=== PATIENT | male | born 1945 | race Caucasian/White ===

== ENCOUNTER → 2024-04-21 06:43 | Outpatient (REF) | payer OTHER, SELFPAY ==
[2024-04-21 07:24] LABS: % Basophils 1.2 % (0-2); % Immature Granulocytes 0.4 % (0-0.5); % Lymphocytes 28.1 % (20.5-51.1); % Monocytes 9.9 % (1.7-9.3); % Neutrophils 56.4 % (42.2-75.2); Absolute Basophils 0.1 10^3/uL (0-0.2); Absolute Eosinophils 0.2 10^3/uL (0-0.7); Absolute Lymphocytes 1.4 10^3/uL (1.2-3.4); Absolute Monocytes 0.5 10^3/uL (0.1-0.6); Absolute Neutrophils 2.8 10^3/uL (1.4-6.5); Hemoglobin 13.4 g/dL (13.0-18.0); Mean Corp Hgb Conc. 34.4 g/dL (33.0-37.0); Mean Corpuscular Hgb 29.9 pg (27.0-31.0); Mean Corpuscular Volume 87.1 fL (80.0-94.0); Mean Platelet Volume 9.4 fL (7.4-10.4); Nucleated Red Blood Cells % 0 % (-); Platelet Count 181 10^3/uL (130-400); Red Blood Cell Count 4.48 10^6/uL (4.70-6.10); Red Cell Dist. Width 12.9 % (11.5-14.5); White Blood Cell Count 4.9 10^3/uL (4.8-10.8)
[2024-04-21 07:56] LABS: ALT (SGPT) 19 U/L (0-50); AST (SGOT) 30 U/L (17-59); Alkaline Phosphatase 103 U/L (38-126); Blood Urea Nitrogen 28 mg/dl (9-20); Calcium 9.3 mg/dl (8.4-10.2); Carbon Dioxide 25 mmol/L (22-30); Chloride 108 mmol/L (98-107); Glucose 92 mg/dl (70-99); HDL Cholesterol 56 mg/dl; LDL Cholesterol, Calculated 136 mg/dl; Potassium 4.7 mmol/L (3.5-5.1); Sodium 140 mmol/L (135-145); Total Bilirubin 0.6 mg/dl (0.2-1.3); Total Cholesterol 212 mg/dl (50-199); Total Protein 7.1 g/dl (6.3-8.2); Triglyceride 102 mg/dl (10-149); Very Low Density Lipoprotein 20 mg/dl (0-30); eGFR 50.81
[2024-04-21 08:27] LABS: TSH 6.19 uIU/ml (0.47-4.68)
[2024-04-22 14:01] LABS: PSA Total 0.9 ng/mL (0.0-4.0)
== END ==
LOC: REG 06:43
PROVIDERS: ATTENDING PHYSICIAN Internal Medicine
DX: Z00.00 Encounter for general adult medical examination without abnormal findings (principal); N40.0 Benign prostatic hyperplasia without lower urinary tract symptoms; E03.9 Hypothyroidism, unspecified; Z78.9 Other specified health status; E78.5 Hyperlipidemia, unspecified
CPT/HCPCS: 36415; 80053; 80061; 84153; 84154; 84443; 85025

== ENCOUNTER → 2025-05-21 06:38 | Outpatient (REF) | payer MEDICARE, SELFPAY ==
[2025-05-21 07:48] LABS: Hematocrit 39.9 % (39.0-52.0); Hemoglobin 13.7 g/dL (13.0-18.0); Mean Corp Hgb Conc. 34.3 g/dL (33.0-37.0); Mean Corpuscular Volume 88.5 fL (80.0-94.0); Nucleated Red Blood Cells % 0 % (-); Platelet Count 181 10^3/uL (130-400); Red Cell Dist. Width 12.8 % (11.5-14.5)
[2025-05-21 08:02] LABS: ALT (SGPT) 16 U/L (0-50); AST (SGOT) 25 U/L (17-59); Albumin 3.9 g/dl (3.5-5.0); Alkaline Phosphatase 88 U/L (38-126); Blood Urea Nitrogen 20 mg/dl (9-20); Calcium 9.6 mg/dl (8.4-10.2); Carbon Dioxide 24 mmol/L (22-30); Chloride 110 mmol/L (98-107); Glucose 95 mg/dl (70-99); HDL Cholesterol 49 mg/dl; LDL Cholesterol, Calculated 118 mg/dl; Potassium 4.4 mmol/L (3.5-5.1); Sodium 140 mmol/L (135-145); Total Protein 7.0 g/dl (6.3-8.2); Very Low Density Lipoprotein 21 mg/dl (0-30); eGFR 55.19
[2025-05-21 08:30] LABS: TSH 5.17 uIU/ml (0.47-4.68)
[2025-05-21 16:10] LABS: Glycohemoglobin (HgbA1c) 5.5 % (4.0-5.6)
== END ==
LOC: REG 06:38
PROVIDERS: ATTENDING PHYSICIAN Internal Medicine; REFERRING PHYSICIAN Internal Medicine Cardiovascular Disease
DX: I25.10 Atherosclerotic heart disease of native coronary artery without angina pectoris (principal); E03.9 Hypothyroidism, unspecified; E78.5 Hyperlipidemia, unspecified; R73.01 Impaired fasting glucose; N40.0 Benign prostatic hyperplasia without lower urinary tract symptoms
CPT/HCPCS: 36415; 80053; 80061; 83036; 84153; 84154; 84443; 85025